=== PATIENT | male | born 1990 | race Caucasian/White ===

== ENCOUNTER 2022-10-12 10:53 | Emergency (ER) | payer BC, SELFPAY ==
--- NOTE | ~2022-10-12 | XR_ITS ---
XR hand RT min 3V 10/12/2022 11:25 INDICATION: Right hand pain PROCEDURE: 3 views right hand COMPARISON: No prior studies for comparison. FINDINGS: Fracture, dislocation or subluxation is not identified. The soft tissues appear within norm al limits. No foreign bodies are identified. IMPRESSION: 1: NO ACUTE BONE OR JOINT ABNORMALITY IDENTIFIED. Reviewed, dictated and finalized at location L.
[2022-10-12 10:58] VITALS: BP 152/88; PULSE 78; RESP 20; TEMP 36.8; O2SAT 100
--- NOTE | 2022-10-12 11:17 | ED.UPPEXIN ---
HPI - Extremity Injury (Upper) General Chief Complaint: Extremity Injury, Upper Stated Complaint: Right Wrist Injury History of Present Illness HPI narrative: Pt is a 32 y/o male presents to with right hand pain, along the 5th MC and into the medial carpal landmarks (ulnar side) after a fall 1 week ago. He cannot recall exactly how he landed. He denies LOC, neck or back pain, he has no other injuries as a result of the fall. He has rested, iced and treated conservatively at home without improvement. Pain increases with flexion of the wrist. He has no distal paresthesias. He is right hand dominant. He recalls fracturing the right 5th finger or MC years ago and after recalling that injury, became concerned he may have reinjured that fracture side, prompting his visit. Related Data Home Medications Medication Instructions Recorded Confirmed Acid Reflux Medication 1 tablet PO DIRECTED 10/12/22 Allergies Allergy/AdvReac Type Severity Reaction Status Date / Time No Known Allergies Allergy Verified 10/12/22 11:03 Review of Systems Musculoskeletal: Comments: refer to HPI Exam Const: General: cooperative, healthy appearing, comfortable, no acute distress, well developed, alert, awake and Physically active Orientation/consciousness: oriented to person, oriented to place, oriented to time and patient oriented x3 Limitations: no limitations HENMT: Head: normal to inspection Eyes: General: appearance normal, both eyes and all related structures Visual Yuen: normal visual yuen by confrontation Alignment and Position: alignment normal Conjunctivae: conjunctivae normal EOM: EOMs intact bilaterally Neck: Neck: normal visual inspection and full ROM Resp: Effort & Inspection: normal respiratory effort and able to speak in complete sentences Cardio: Rate: regular rate Rhythm: regular rhythm Heart sounds: S1 normal heart sound present and S2 normal heart sound present Peripheral pulses: Peripheral pulses 2+ throughout Back/Spine/Pelvis: Cervical Spine: normal cervical lordosis Thoracic/Lumbar Spine: thoracic and lumbar spine normal to inspection Skin: General skin exam: normal color and no rashes or lesions noted Nails: normal Neuro: General: oriented to person, oriented to place, oriented to time and patient oriented x3 Cognition (Neuro): normal cognition Speech: normal speech Gait exam (Neuro): Normal gait present Extrem: General: normal to inspection and full ROM Other: pt is TTP over the right 5th MC and carpals medially (ulnar side). No TTP over the radius or ulna. No swelling, deformity or ecchymosis. Distal PMS intact Course Course Level of Care: Express Care Visit ([id number]) Vital Signs Vital signs: Vital Signs Temperature 36.8 C 10/12/22 10:58 Pulse Rate 78 10/12/22 10:58 Respiratory Rate 20 10/12/22 10:58 Blood Pressure 152/88 H 10/12/22 10:58 Pulse Oximetry 100 10/12/22 10:58 Oxygen Delivery Room Air 10/12/22 10:58 Temperature 36.8 C 10/12/22 10:58 Pulse Rate 78 10/12/22 10:58 Respiratory Rate 20 10/12/22 10:58 Blood Pressure 152/88 H 10/12/22 10:58 Pulse Oximetry 100 10/12/22 10:58 Oxygen Delivery Room Air 10/12/22 10:58 MDM - Extremity Injury (Upper) MDM Narrative Medical decision making narrative: plain films of right hand No fracture, continue conservative therapy, FU with PCP if not improving in one week. Differential Diagnosis Differential diagnosis: Likely sprain and strain of wrist and fracture of hand Imaging Data Radiologist's impression: No acute fracture Discharge Plan Discharge Clinical Impression: Sprain and strain of right hand Patient Disposition: Home, Self-Care Condition: Stable Instructions: Antibiotic Form, Hand Sprain (ED) Additional Instructions: CONTINUE TO REST, ICE AND ELEVATE THE HAND, TAKE IBUPROFEN OR NAPROXEN DIRECTED OVER THE COUNTER, WITH FOOD, FOR INFLAMMATION AND PAIN RELIEF. SEE Y
== END 2022-10-12 12:15 | disposition home or self-care (01) ==
PROVIDERS: Emergency Provider Nurse Practitioner Family
DX: S63.91XA Sprain of unspecified part of right wrist and hand, initial encounter (principal); S66.911A Strain of unspecified muscle, fascia and tendon at wrist and hand level, right hand, initial encounter; W19.XXXA Unspecified fall, initial encounter
CPT/HCPCS: 73130; 99213; G0463